=== PATIENT | male | born 2000 | race Caucasian/White ===

== ENCOUNTER 2024-02-02 18:22 | Emergency (ER) | payer OTHER ==
[~2024-02-02] VITALS: Ht 175.3 cm; Wt 70.5 kg
[2024-02-02 18:30] VITALS: BP 162/98; TEMP 98.4
[2024-02-02] MEDS ORDERED: Tetanus,Diphther Toxoid Adult 0.5 ML SYRINGE IM ONE (19:00)
[2024-02-02] MEDS ORDERED: Rabies Immune Globulin PF 300 UNITS/2 ML VIAL IM ONE (19:00)
[2024-02-02 19:40] VITALS: PULSE 94
== END 2024-02-02 19:45 | disposition home or self-care (01) ==
LOC: COL.ER 18:22
DX: S50.861A Insect bite (nonvenomous) of right forearm, initial encounter (principal); Z23 Encounter for immunization; W57.XXXA Bitten or stung by nonvenomous insect and other nonvenomous arthropods, initial encounter